=== PATIENT | male | born 1985 | race African-American/Black ===

== ENCOUNTER 2023-07-15 17:39 | Emergency (ER) | payer OTHER ==
[~2023-07-15] VITALS: Ht 177.8 cm; Wt 90.7 kg
== END 2023-07-15 19:08 | disposition home or self-care (01) ==
LOC: ER 17:39
DX: T78.1XXA Other adverse food reactions, not elsewhere classified, initial encounter (principal); X58.XXXA Exposure to other specified factors, initial encounter; Z91.013 Allergy to seafood